=== PATIENT | male | born 1970 | race Caucasian/White ===

== ENCOUNTER 2020-05-05 08:03 | Emergency (ER) | payer MEDICAID ==
[~2020-05-05] VITALS: Ht 167.6 cm; Wt 80.2 kg
[2020-05-05] MEDS ORDERED: PROZAC10 M1 PO (08:11)
[2020-05-05] MEDS ORDERED: PROAIR HFA8.5 GM INH (08:11)
[2020-05-05] MEDS ORDERED: NEURONTIN100 MG PO (08:12)
[2020-05-05] MEDS ORDERED: BUSPIRONE HCL10 MG PO (08:12)
[2020-05-05] MEDS ORDERED: PRAZOSIN 1 MG CA1 M1 PO (08:13)
[2020-05-05] MEDS ORDERED: SEROQUEL200 MG PO (08:14)
[2020-05-05 08:33] LABS: HEMOGLOBIN 15.6 gm/dL (14.0-18.0)
[2020-05-05 08:34] LABS: HEMATOCRIT 47.4 % (42.0-52.0); MCH 30.9 pg (26.0-34.0); MCHC 32.8 g/dL (28.0-37.0); MCV 94.2 fL (80.0-100.0); MPV 6.4 fl. (7.2-11.1); NUCLEATED RBCS 0 /100WBC; PLATELET COUNT* 289 thou/uL (150-400); RBC 5.04 mil/uL (4.50-6.00); RDW-CV 15.8 % (10.5-14.5); WBC 11.8 thou/uL (4.0-11.0)
[2020-05-05 08:45] LABS: CALCIUM 8.9 mg/dL (8.5-10.1); CREATININE 0.7 mg/dL (0.6-1.3); POTASSIUM 4.4 mmol/L (3.5-5.1)
[2020-05-05 08:58] LABS: ALBUMIN 4.3 g/dL (3.4-5.0); CK-MB MASS 1.9 ng/mL (<0.5-3.6); TOTAL BILIRUBIN 0.3 mg/dL (<0.1-1.0); TOTAL PROTEIN 9.6 g/dL (6.4-8.2)
[2020-05-05 09:07] LABS: APTT 26.1 Seconds (25.0-31.3)
[2020-05-05 09:19] LABS: ABSOLUTE LYMPHOCYTES 0.9 thou/uL (0.8-5.3); ABSOLUTE MONOCYTES 0.2 thou/uL (0.0-1.2); ABSOLUTE NEUTROPHILS 10.6 thou/uL (1.6-8.1); PLATELET ESTIMATE ADEQUATE
[2020-05-05 09:56] LABS: URINE BILIRUBIN NEGATIVE (Negative); URINE BLOOD TRACE (Negative); URINE CLARITY CLEAR; URINE COLOR YELLOW; URINE GLUCOSE-RANDOM NEGATIVE (Negative); URINE KETONES 2+ (Negative); URINE LEUKOCYTES-REFLEX NEGATIVE (Negative); URINE NITRITE-REFLEX NEGATIVE (Negative); URINE PROTEIN NEGATIVE (Negative); URINE SPECIFIC GRAVITY >= 1.030 (1.005-1.030); URINE UROBILINOGEN 0.2 E.U./dl (0.2-1.0)
[2020-05-05 10:02] LABS: ACETAMINOPHEN < 3 ug/mL (10-30); ALCOHOL 77 mg/dL (<10); SALICYLATE 4.4 mg/dL (2.8-20.0)
[2020-05-05 10:08] LABS: AMP/METHAMP Negative (Negative); BARBITURATES Negative (Negative); BENZODIAZEPINES Negative (Negative); COCAINE Negative (Negative); METHADONE Negative (Negative); OPIATES Negative (Negative); PCP Negative (Negative); THC Negative (Negative)
[2020-05-05 10:23] LABS: PCO2 VENOUS 24.8 mmHg (41.0-51.0); PO2 VENOUS 203.6 mmHg (35.0-45.0)
[2020-05-05 10:24] LABS: BE -13.4 mmol/L (-2 to +3)
[2020-05-05 10:53] LABS: CREATININE 0.8 mg/dL (0.6-1.3); POTASSIUM 4.6 mmol/L (3.5-5.1)
--- NOTE | 2020-05-05 15:57 | EKG ---
[place] [address] ELECTROCARDIOGRAM REPORT Name: DANUTA QUINTANILLA Room: [facility]#: [id number] Admission: 05/05/20 Attend Phys: Discharge: Date of : 72 Date of Service: 05/05/20806 Report #: [id number] THIS REPORT FOR: //name// [facility] ED Test Date: 2020-05-05 Test Time: 08:07:40 Pat Name: DANUTA QUINTANILLA Department: Room: Gender: [place]: [place] : 1970 Requested By: Mirza Gomes Order Number: [id number] MD: Kevin De La Torre Measurements Intervals [place] Rate: 105 P: 52 [place]: 140 QRS: -25 QRSD: 120 T: 49 QT: 359 QTc: 475 Interpretive Statements Sinus tachycardia IVCD, consider atypical RBBB Baseline wander in lead(s) II,III,aVR,aVF,V2 No previous ECG available for comparison Electronically Signed On 05-05-2020 15:56:58 CDT by Kevin De La Torre [email or web address] <ELECTRONICALLY SIGNED> By: Kevin De La Torre MD, [facility] 05/05/20 [id number] Kevin De La Torre MD, [facility] /EPI
[2020-05-05] MEDS ORDERED: ATIVAN1 M1 PO (16:03)
[2020-05-05 16:11] VITALS: BP 145/97
== END 2020-05-05 16:12 | disposition home or self-care (01) ==
LOC: M.ERS 08:03
PROVIDERS: Family Medicine
DX: F10.129 Alcohol abuse with intoxication, unspecified (principal); Y90.3 Blood alcohol level of 60-79 mg/100 ml; F32.9 Major depressive disorder, single episode, unspecified; R07.89 Other chest pain; R06.2 Wheezing; J44.9 Chronic obstructive pulmonary disease, unspecified; Z88.5 Allergy status to narcotic agent; Z88.0 Allergy status to penicillin; Z79.899 Other long term (current) drug therapy